=== PATIENT | female | born 1970 | race Caucasian/White ===

== ENCOUNTER 2023-11-10 06:15 | Day surgery (SDC) | payer OTHER ==
[2023-11-10] MEDS: LACTATED RINGERS 1,000 ML IV SCH (06:52)
[2023-11-10 06:59] VITALS: RESP 16; TEMP 97.1
[2023-11-10] MEDS ORDERED: PROPOFOL 10 MG/ML 20 ML VIAL IV ONE (07:21)
[2023-11-10] MEDS ORDERED: LIDOCAINE 1% INJ 10MG/ML (20 ML MDV) ONE (07:21)
--- NOTE | 2023-11-10 07:45 | P.PCN ---
Date of Procedure: 11/10/23 Procedure(s) Performed: Brief history: Patient is a pleasant 52-year-old white female scheduled for an elective upper endoscopy as well as colonoscopy as a part of evaluation of epigastric discomfort, intermittent dysphagia to solids, heartburn and rectal bleeding Procedure performed: Esophagogastroduodenoscopy with biopsy Colonoscopy Preoperative diagnosis: Epigastric pain, heartburn, small intermittent dysphagia to solids of 6 months duration Rectal bleeding Anesthesia: MAC Procedure: After informed consent was obtained from the patient was brought into the endoscopy unit and IV sedation was administered by anesthesia under continuous monitoring. Initially upper endoscopy was done. The Olympus GF 160 video endoscope was inserted inserted into the mouth and esophagus intubated without any difficulty and was gradually advanced into the stomach and duodenum and carefully examined. The bulb and second part of the duodenum appeared normal. Biopsies were done from the duodenum to rule out celiac disease. The scope was then withdrawn into the stomach adequately insufflated with air and upon careful examination the antrum had mild gastritis and biopsies were done from this area. Because of the body, cardia and fundus appeared normal. The scope was then withdrawn into the esophagus. small hiatal hernia noted. The GE junction was located at 40 cm to the incisors. It appeared regular with no erythema erosions or ulcerations. Rest of the esophagus appeared normal. Patient t olerated the procedure well. At this time the patient continued to remain sedation. Initial digital rectal examination was normal. Olympus CF 160 video colonoscope was then inserted into the rectum and gradually advanced to the cecum without any difficulty. Careful examination was performed as the scope was gradually being withdrawn. The prep was excellent. The cecum, ascending colon, transverse colon, descending colon, normal. In the sigmoid: Extending from 25-35 cm of the patchy areas of erythema consistent with colitis and biopsies were done from this area. Rest of the sigmoid colon and rectum appeared normal. Retroflexion was performed in the rectum and and small internal hemorrhoidse noted. Patient tolerated the procedure well. Impression: 1. Upper endoscopy revealed mild antral gastritis and small hiatal hernia 2. ColoRevealed mild patchy areas of erythema in the sigmoid: Consistent with mild colitis and small internal hemorrhoids Recommendations: Findings of this examination were discussed with the patient as well as her family. She was advised to follow with the biopsy results. Recommend a trial of Pepcid 20 mg twice daily for 6 weeks. Continue with a high-fiber diet and fiber supplements a regular basis. Repeat screening colonoscopy in 10 years.
[2023-11-10] MEDS: ONDANSETRON 4 MG/2 ML VIAL ONE (08:09)
[2023-11-10 08:29] VITALS: BP 115/76; PULSE 65
== END 2023-11-10 09:10 | disposition home or self-care (01) ==
LOC: ORWHC2ENDO 06:15
PROVIDERS: ATTEND Internal Medicine Gastroenterology
DX: K29.50 Unspecified chronic gastritis without bleeding (principal); K21.00 Gastro-esophageal reflux disease with esophagitis, without bleeding; K44.9 Diaphragmatic hernia without obstruction or gangrene; K62.5 Hemorrhage of anus and rectum; K64.8 Other hemorrhoids; K52.89 Other specified noninfective gastroenteritis and colitis; G90.A Postural orthostatic tachycardia syndrome [POTS]; F12.90 Cannabis use, unspecified, uncomplicated; Z79.899 Other long term (current) drug therapy; Z98.890 Other specified postprocedural states; Z88.5 Allergy status to narcotic agent; Z91.040 Latex allergy status
CPT/HCPCS: 88305; 45380; 43239; J2405; J2001; J2704